=== PATIENT | female | born 2005 | race Caucasian/White ===

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

== ENCOUNTER 2024-10-25 13:56 | Outpatient (AMB) | payer OTHER, SELFPAY ==
--- NOTE | 2024-10-25 14:14 | MHC.PC.OV ---
Vital Signs 10/25/24 14:20 Height 5 ft 2.25 in Weight 131 lb BMI 23.8 BP 102/64 Blood Pressure Location Rt brachial Pulse 89 Pulse Source Pulse Oximeter Temp 97.9 F Pulse Oximetry (%) 98 Intake Visit Reasons: establish care Intake Note: trouble sleeping but seems to be getting worse Allergies amoxicillin Allergy (Unknown, Verified 10/25/24 14:18) unknown walnuts Allergy (Unknown, Uncoded 08/07/21 09:30) unknown [facility] Medical History (Updated 10/25/24 @ 15:12 by Anabel Maki PA-C) Thyroid nodule Establishing care with new doctor, encounter for Constipation in female Anxiety Asthma Surgical History (Updated 10/25/24 @ 15:10 by Anabel Maki PA-C) H/O right wrist surgery [place] teeth removed Family History (Updated 10/25/24 @ 15:09 by Anabel Maki PA-C) Mother Diabetes Maternal Grandmother Diabetes Social History Patient Tobacco Use Status: Never used Tobacco Female Reproductive History Menstrual control method: none History of abnormal pap smear: No History of STI: No History of abnormal mammogram: No Questionnaire PHQ-9 Over the last 2 weeks, how often have you been bothered by any of the following problems? 1. Little interest or pleasure in doing things: not at all 2. Feeling down, depressed, or hopeless: several days 3. Trouble falling or staying asleep, or sleeping too much: more than half the days 4. Feeling tired or having little energy: several days 5. Poor appetite or overeating: not at all 6. Feeling bad about yourself - or that you are a failure or have let yourself or your family down: several days 7. Trouble concentrating on things, such as reading the newspaper or watching television: several days 8. Moving or speaking so slowly that other people could have noticed. Or the opposite - being so fidgety or restless that you have been moving around a lot more than usual: several days 9. Thoughts that you would be better off or of hurting yourself in some way: not at all Total score: 7 Depression Screening Interpretation: Negative Depression Screening Done: Yes 58067 - PHQ-9 Billing: Yes Source: Developed by Drs. Silverio Melissa, Gurpreet Soria and colleagues, with an educational delmy from [employer]. Thrive Questionnaire I am a: Patient What is your living situation today?: I have a steady place to live Within the past 12 months, did the food you bought not last and you didn't have the money to get more?: Never true Within the past 12 months, did you worry whether your food would run out before you got money to buy more?: Never true Do you have trouble paying for medicines?: No Do you have trouble getting transportation to medical appointments?: No Do you have trouble paying your heating and electricity bill?: No Do you have trouble taking care of your child, family member or friend?: No Do you have trouble with day-to-day activities such as bathing, preparing meals, shopping, managing finances, etc.?: No Are you currently unemployed and looking for a job?: No Are you interested in more education?: No THRIVE Score: 0 AUDIT C Alcohol Use Questionnaire (AUDIT-C) 1. How often do you have a drink containing alcohol?: Never 3. How often do you have six or more drinks on one occasion?: Never Total Score: 0 Score Reviewed/Action Taken: No JEANNIE-7 AMB Questionnaire JEANNIE-7 Feeling nervous, anxious, or on edge: 2 = More than half the days Not being able to stop or control worryin = More than half the days Worrying too much about different things: 2 = More than half the days Trouble relaxin = More than half the days Being so restless that it is hard to sit still: 2 = More than half the days Becoming easily annoyed or irritable: 2 = More than half the days Feeling afraid as if something awful might happen: 2 = More than half the days Total JEANNIE-7 score (0-4 normal; 5-9 mild; 10-14 moderate; 15-21 severe): 14 Source: Developed by Drs. Silverio Melissa, Gurpreet Soria and colleagues, with an educational delmy from [employer]. JEANNIE-7 Assessment Billing JEANNIE-7 Assessment Tool: JEANNIE-7 Assessment 01622 Physical exam (Primary Care) Vital Signs: Last Vital Signs Temp 97.9 F 03/26/25 14:20 Pulse 89 10/25/24 14:20 BP 102/64 10/25/24 14:20 Pulse Ox 98 10/25/24 14:20 Care Plan Goal for BP management: <130/80 at Goal BMI result Body Mass Index 23.8 normal bmi Tobacco/Smoking Status: Tobacco use Status Patient Tobacco Use Status Never used Tobacco 10/25/24 14:15 Depression Screening Interpretation: Negative Coding Level of Care Code New Pt Level 4 (26929) Complex EM visit Add On G2211 Diagnoses Establishing care with new doctor, encounter for Z76.89 Anxiety F41.9 Asthma J45.909 Constipation in female K59.00 Thyroid nodule E04.1 Additional Codes PHQ-9 - 72430 - PHQ-9 Billing: Yes ([id number]) JEANNIE-7 Assessment Billing - JEANNIE-7 Assessment Tool: JEANNIE-7 Assessment [id number] ([id number]) Assessment & Plan Assessment & Plan (1) Establishing care with new doctor, encounter for: Code(s): Z76.89 - Persons encountering health services in other specified circumstances Category: Medical (2) Anxiety: Code(s): F41.9 - Anxiety disorder, unspecified Category: Medical Plan: Therapy referral was made to explore treatment for increased anxiety. Hydroxyzine prescribed to assist with anxiety and sleep issues temporarily. Condition is chronic and stable continue to monitor. (3) Asthma: Code(s): J45.909 - Unspecified asthma, uncomplicated Category: Medical Plan: The patient is aware of her asthma diagnosis with infrequent symptoms. Albuterol inhaler prescribed for sporadic use as needed for asthma symptoms. Condition is chronic and stable continue to monitor. (4) Constipation in female: Code(s): K59.00 - Constipation, unspecified Category: Medical Plan: Will prescribe fiber supplement, Colace and MiraLax. Condition is chronic and stable continue to monitor. (5) Thyroid nodule: Code(s): E04.1 - Nontoxic single thyroid nodule Category: Medical Plan: On exam patient is noted to have a possible thyroid nodule therefore will order thyroid ultrasound. Condition is stable continue to monitor Plan Plan Patient was informed and verbally consented to the use of an ambient scribe for clinic note documentation during this visit. 1. Unspecified asthma, uncomplicated The patient is aware of her asthma diagnosis with infrequent symptoms. Albuterol inhaler prescribed for sporadic use as needed for asthma symptoms. 2. Family History Of Diabetes Mellitus Discussed the importance of lifestyle alterations to prevent diabetes given her familial predisposition. 3. History Of Surgical Extraction Of [place] Teeth Recorded past surgical procedure of wisdom teeth removal with no current complications. 4. Personal history of (healed) traumatic fracture Reviewed historical treatment details of wrist fractures with patient confirming absence of current issues. 5. Generalized Anxiety Disorder Therapy referral was made to explore treatment for increased anxiety. Hydroxyzine prescribed to assist with anxiety and sleep issues temporarily. Discussion Notes During the visit, we discussed the patient's current health concerns focusing on her asthma and anxiety. I outlined the importance of having an albuterol inhaler available as a precautionary measure despite the infrequency of asthma symptoms. The patient expressed interest in managing heightened stress and anxiety through therapeutic interventions. Hydroxyzine was suggested to alleviate sleep disturbances and reduce stress related issues. She was referred to a mental health professional to explore further assessment and therapy. Additionally, we discussed her significant family history of diabetes and strategies for risk reduction through lifestyle choices. I explained the need to monitor thyroid nodules with an ordered ultrasound. Appropriate consent for actions and care plan modifications were discussed and obtained. Orders: Orders Complete Blood Count Auto Diff Today Z00.00 - Encounter for general adult medical examination without abnormal findings C Reactive Protein Today Z00.00 - Encounter for general adult medical examination without abnormal findings Magnesium Today Z00.00 - Encounter for general adult medical examination without abnormal findings Vitamin D 25-OH Total Today Z00.00 - Encounter for general adult medical examination without abnormal findings Comprehensive [place]. Panel Fast Today Z00.00 - Encounter for general adult medical examination without abnormal findings Hemoglobin A1c Today Z00.00 - Encounter for general adult medical examination without abnormal findings Lipid Panel Today Z00.00 - Encounter for general adult medical examination without abnormal findings Liver Panel Today Z00.00 - Encounter for general adult medical examination without abnormal findings TSH reflex Free T4 Today Z00.00 - Encounter for general adult medical examination without abnormal findings US thyroid Today E04.1 - Nontoxic single thyroid nodule Referrals Counseling Referral F41.9 - Anxiety disorder, unspecified Psychiatry Outpatient Consultation Service F41.9 - Anxiety disorder, unspecified Medications: New hydroxyzine HCl 50 mg PO Q8H PRN 90 tabs 1RF anxiety psyllium husk (Daily Fiber) 0.52 grams PO DAILY 90 caps 1RF docusate sodium (Colace) 100 mg PO DAILY 90 caps 1RF polyethylene glycol 3350 (Miralax) 17 grams PO BID 30 ea 1RF Patient Instructions: Patient Instructions - Use albuterol inhaler as needed for asthma symptoms. - Take hydroxyzine before bed to assist with sleep and anxiety as discussed. - Attend scheduled appointment with referred therapist for anxiety management. - Increase physical activity and consider dietary changes to reduce diabetes risk. - Return for follow-up visit within a year or sooner if symptoms worsen or new issues arise. - Plan for ultrasound evaluation of thyroid nodule as scheduled. - Consult us if there are any changes in your health or if you experience new symptoms. - Maintain open communication regarding health concerns and management plans. - Follow up if prescribed treatments do not alleviate symptoms or cause side effects. Scribe Plan - Not visible on output: History of Present Illness The patient is a 18-year-old female presenting for the establishment of primary care, asthma management, and anxiety issues. She has a history of asthma diagnosed during childhood, with rare recent symptoms and uncertainty about needing inhaler therapy. She also struggles with heightened anxiety levels, impacting her daily life and sleep patterns, prompting interest in therapeutic support. She has a notable history of multiple right wrist fractures in her early adolescence, leading to surgical intervention involving plates and screws. Her family has a significant history of diabetes, particularly affecting her mother and maternal grandparents. She denies any family history of cardiovascular or breast cancer. Her history also includes the surgical removal of wisdom teeth. The patient has pursued health science studies in college and plans to transition to [employer] school. She resides with her family, reports social drinking habits, and is sexually active with one male partner. Her increased anxiety has led to sleep disruptions, affecting her interpersonal relationships. She is considering therapy, despite familial resistance to such interventions. Social History - Education: Currently a [employer] in college majoring in health science. - Housing: Lives with parents and two younger sisters. - Relationships: In a stable relationship with a boyfriend. - Substance Use: Consumes alcohol rarely in social settings; denies drug use. - Sexual Activity: Sexually active with her boyfriend. - Family Health: Family history of diabetes; mother and both maternal and paternal grandparents affected. - Activities of Daily Living: Manages college life and aspirations for a career in [employer], occasionally affected by anxiety. Review of Systems - General: Denies unintentional weight gain or loss. - Gastrointestinal: Denies trouble moving bowels. - Psychiatric: Reports anxiety with recent episodes affecting sleep and interpersonal relationships. Physical Exam Appearance: Alert. Oriented X3. No acute distress. Head: Normal external exam. Normocephalic. Atraumatic. Eyes: Pupils are equal, round, and reactive to light. Extraocular movements intact. Conjunctiva and sclera normal. Eyelids normal. Ears: External auditory canal normal. Tympanic membranes normal. Throat: Pharynx normal. Uvula midline. Moist mucous membranes. Neck: Normal inspection. Neck supple. Full range of motion. No adenopathy. Questioning thyroid nodule on the left side. Otherwise the rest of the thyroid is normal. No meningeal signs. No neck mass noted. Cardiovascular: Normal heart rate and rhythm. Heart sound normal. No murmurs noted. Pulses normal throughout. Respiratory: No respiratory distress. Painless inspiration. Breath sounds normal. No wheezes/rales/rhonchi noted. Chest nontender. No accessory muscle usage noted or decreased air movement noted. Abdomen: Soft and nontender. Bowel sounds normal in all 4 quadrants. No distention noted. No organomegaly noted. No visible injury noted. Back: No costovertebral angle tenderness. Full range of motion noted. Skin: Skin warm and dry. Normal skin color. Normal skin turgor. No rashes/lesions/lacerations noted. Extremities: No lower extremity edema. Extremities exhibit normal range of motion. Extremities nontender. Neuro: Oriented X 3. No motor deficit. No sensory deficit. Reflexes normal.
[2024-10-25 14:20] VITALS: BP 102/64; PULSE 89; TEMP 36.6; O2SAT 98; BMI 23.8
--- OUTSIDE RECORDS SUMMARY | 2024-10-25 16:45 | XMS_ITS ---
Author Name [facility] Organization Unknown Allergies Allergen Reaction Severity Comment Documented Date Source Statu s [facility] AMOXICILLIN [facility] Problems Problem Status Onset Date Problem Type Date of Resoluti on Source Numbness of hand active 2024-01-28 ProblemAct E [facility] Pain of left wrist active 2024-01-28 ProblemAct [facility] Numbness and tingling in right hand active EncounterDiagnosisAct [facility]CT Encounters Encounter Type Encounter Reason Primary Diagnosis Location Date Ambulatory [facility] 03/20/2024 Ambulatory [facility] 03/17/2024 Ambulatory Anesthesia of skin Anesthesia of skin [facility] [employer] [facility] 02/28/2024 Ambulatory [facility] 01/31/2024 Ambulatory [facility] 01/28/2024 Ambulatory [facility] 01/07/2024 Ambulatory [facility] 01/06/2024 Ambulatory [facility] 01/06/2024 Ambulatory [facility] 01/06/2024 Ambulatory [facility] 01/06/2024 Ambulatory [facility] 01/06/2024 Care Team Organization Name Specialty Phone Email Start Date End [employer] [facility] [employer] 02/29/2024 10/18/2024 [employer] 01/31/2024
--- OUTSIDE RECORDS SUMMARY | 2024-10-25 16:45 | XMS_ITS | Data Portability ---
Author Organization [place] [facility] Diane España [place] Address [address] [place] [address] Care Team Providers Care Shore Man Name Role Phone ELICIA PUGH Referring Provider [phone] ELICIA PUGH Primary Care Provider Assessment Encounter Date Assessment Date Assessment LastModified by Organization Details LastModified Time 01/06/2024 01/06/2024 She has chronic pain following 3 right wrist procedures. I believe she needs hand therapy at this time. She may ultimately require advanced imaging with either an MRI or nerve conduction study however these are not warranted at this time. Plan to follow-up with Dr. Santos in about 3 weeks for repeat assessment. Not available 01/06/2024 14:15:10 01/28/2024 01/28/2024 The above findin gs were discussed in detail today with the patient. She has relatively nonspecific findings though on my examination today she is exhibiting mostly sensitivity over her volar incision. It does appear that the tendon transfer which is supposedly a EIP to EPL tendon transfer has worked well and is functional. I did explain to her that typically she will not regain retropulsion of the thumb however she has good extension of the thumb and it is functional. She is not having any deficits in her index finger from the tendon transfer. She has good wrist range of motion. Cannot explain the numbness and tingling symptoms she is having up into her forearm and into her fingers though it does seem that her scar is mostly sensitive to light touch. I explained that therapy can be helpful for this although she has been to extensive physical therapy. Lateral importance of doing scar massage at home and desensitization to help with the symptoms. I would like to obtain the records from Dr. Brendon's office for details for each of the surgeries and treatments that he has done so far before proceeding with an MRI. We will get a nerve conduction study to evaluate for her nonspecific nerve symptoms. She will return to see me for follow-up in 3 weeks after she obtains a nerve conduction study and we obtain the records from the other office. All of her questions were answered, she is in agreement the plan. [email or web address] Not available 01/28/2024 12:09:38 03/17/2024 03/17/2024 The above findin gs were discussed in detail today with the patient. She has relatively nondescript symptoms and I cannot reproduce any of her symptoms today on examination. We went over the results of her nerve conduction study which do not show any abnormalities in tested nerves. I let her know that I cannot offer her surgery or intervention that may help her at this point. I would recommend continued therapy and use of the hand as tolerated we discussed that she had 3 surgeries on that hand and it may never be the same as her contralateral side. She understands this. We did discuss seeing a PM&R physician if she would like another opinion about the cramping and numbness that she is experiencing. She will hold off at this point. All of her questions were answered she will return to see me as needed. [email or web address] Not available 03/17/2024 12:29:54 Plan of Treatment Reminders Order Date Submit Date Provider Last Modified By Organization Details Last Modified Time Details Appointments None recorded. Lab None recorded. Referral physical medicine and rehabilita tion referral - Right hand numbness, history of distal radius fracture s/p ORIF and removal of hardware, sensistivi ty over volar wrist incision, numbness in forearm and [email or web address] Request, please contact patient directly to schedule. 2023 024 LUANA Leija MD, [address] [facility], [place], [address], 16:17:48 Procedures None recorded. Surgeries None recorded. Imaging XR, wrist, 3 or more view 2023 024 [email or web address] [facility], [address], [place] [address], [place], [address], 10:22:45 Medication Orders None recorded. Patient TargetsNo targets recorded. Patient Instructions Encounter Date Encounter Id Patient Instructions Last Modified By Organization Details Last Modified Time 01/06/2024 [id number] X-rays of the ri ght wrist were obtained in the [place] office on 01/06/2020 force demonstrates no acute osseous abnormalities. [email or web address] Not available 01/06/2024 14:15:24 01/28/2024 [id number] 3 views of the r ight wrist were ordered on 01/06/2024 and available for review in our system, this demonstrates no acute findings. There is about 2 mm of ulnar negative variance. 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 No evidence of mall or nonunion at the distal radius. There is neutral volar tilt. There is maintained radial inclination. Good mineralization of the bones. [email or web address] Not available 01/28/2024 12:06:43 03/17/2024 [id number] A nerve conducti on study was performed on 02/28/2024 was available for review uploaded into our system, this demonstrates sensory median peak of 2.8 ulnar sensory peak of 2.9 lateral antebrachial cutaneous peak of 2.3. Right median motor onset of 3.0 right ulnar motor onset of 2.5. The impression is there is no electrodiagnostic evidence of right carpal tunnel syndrome or ulnar neuropathy. [email or web address] Not available 03/17/2024 12:28:35 Reason for Referral Physical Medicine And Rehabi litation Referral for Numbness of hand Right hand numbness, history of distal radius fracture s/p ORIF and removal of hardware, sensistivity over volar wrist incision, numbness in forearm and [email or web address] Request, please contact patient directly to schedule. Referring Physician: Flor Santos, Orthopedic Surgery, Encounter Date: 01/28/2024 Problems Name Problem SNOMED Code Status Onset Date Resolution Date Notes Provider Name and Address Organization Details Recorded Time Pain of left wrist 565613500180104 Active 2023 Flor alas MD [address], [facility] [place], [address], [place] [facility], P 12:09:56 Numbness of hand 119107588 Active 2023 Flor alas MD [address], [place], [address], [facility], P 4 12:10:11 Problem Notes None recorded. Medical Equipment None Reported. Allergies Allergen ID Allergen Name Allergen Category Reaction Reaction Severity Criticality Documentation Date Start Date Code Code System Note Provider Name and Address Organization Details Recorded Time 38103 walnut allergeni c extract food Not available Not available Not available 01/28/2024 71042 0 RxNorm Geetha Narus null, [facility], [facility] 4 14:23:09 39996 amoxicill in medicatio n Not available Not available Not available 01/28/2024 723 RxNorm Geetha Narus null, [facility], P 4 14:23:14 Medications Name Sig Start Date Stop Date Status Note LastModified by Organization Details LastModified Time cetirizine 10 mg tablet Take 1 tablet (10 mg total) by mouth daily as needed for allergies. active Not Available Not Available N ot Available azithromycin 250 mg tablet active Not Available Not Available Not Available clindamycin HCl 150 mg capsule TAKE 3 CAPSULES BY MOUTH THREE TIMES DAILY FOR 10 DAYS active Not Available Not Available Not Available fluticasone propionate 50 mcg/actuatio n nasal spray,suspen laura Administer 2 sprays into each nostril daily. active Not Available Not Available No t Available doxycycline hyclate 100 mg tablet TAKE 1 TABLET BY MOUTH TWICE DAILY active Not Available Not Available No t Available Vitals Date Recorded Body height Body mass index (BMI) Body mass index (BMI) Percentile per age and sex Body weight Provider Name and Address Organization Details Last Updated DateTime 03/17/2024 160.02 cm 23.9 kg/m2 71 % 04981.97 g Juve Ramos [facility] 03/17/2024 10:05:15 Social History None recorded. Functional Status None recorded. Mental Status None recorded. Family History Nothing Reported. Medical History No medical history recorded. Gynecological HistoryNo gynecological history recorded. Obstetrics History GPAL:G 0 P 0 0 0 0 Past Encounters Encounter ID Performer Location Encounter Start Date Encounter Closed Date Diagnosis/Indication Diagnosis SNOMED-CT Code Diagnosis ICD10 Code Diagnosis Note [id number] Flor Santos MD [facility] [address] [facility] [place] [address] 01/06/2024 13:33:07 01/06/2024 14:13:53 Pain of right wrist 5979390196 19850 M25.531 Additional diagnosis detail: Pain in right wrist [id number] Geetha Pollock [facility] [address] [facility] [address] [place] [phone] 01/28/2024 11:11:06 01/28/2024 11:47:30 Pain of left wrist 9911463250 03504 M25.532 Additional diagnosis detail: Wrist pain, left Numbness of hand 9555478 04 R20.0 Additional diagnosis detail: Hand numbness [id number] Flor Santos MD [facility] [address] [address] 03/17/2024 09:58:30 03/17/2024 10:23:46 Numbness of hand 906118303 R20.0 Additional diagnosis detail: Hand numbness Health Concerns Section Related Observation LastModified by Organization Detai ls LastModified Time None Recorded Concern Status LastModified by Organization Details LastModified Time None Recorded Advance Directives Directive None Recorded Payers Encounter Date Sequence Insurance Name Policy Number Policy Mcneill Covered Member ID Mcneill Member ID Guarantor Name 01/06/2024 1 [facility] [id number] Colleen Turk [id number] Colleen Turk 01/28/2024 1 [facility] [id number] Colleen Turk [id number] Colleen Turk 03/17/[address] [place] [address] [id number] Colleen Turk [id number] Colleen Turk Notes Date Note Type Note Provider Name and Address Organization Details Recorded Time 01/06/2024 text/html Colleen Turk i s a 18-year-old female who presents to the walk-in office today for evaluation regarding her right breast. She reports 2 surgeries in 2010 for wrist fracture with subsequent hardware removal in 2011 and then a third surgery in [address] Olivas. She notes that since her last procedure she has had intermittent pain that she feels is brought on at unknown times. This can be as simple as brushing her hair or opening her water bottle and she has severe pain. She does complain of intermittent numbness and tingling as well. She did attend hand therapy but this was more than 5 years ago. She has not had any recent treatment to date. 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 TJ CIFUENTES PA-C [address], [place], [address], [place] [facility] 01/06/2024 14:15:39 01/28/2024 text/html This is a 18-year-old nvegj-vaxq-dirxyynh female who is presenting for second opinion regarding her right wrist. She has a history significant for a right wrist fracture she sustained while skiing which was fixed with plate and screws when she was 9 [address] Olivas at [facility]. She underwent subsequent removal of hardware 1 year later. She then underwent a third surgery when she was 14 years old for what sounds like a EPL tendon rupture and underwent a EIP to EPL tendon transfer. She has had issues since the first surgery. She notes pain over her volar incision as well as tingling that radiates into her forearm and distally into the fingers. She has a lot of sensitivity over the incision at the volar wrist as well as over the index finger metacarpal. She has difficulty with typing, opening a water bottle, gripping. She describes severe pain which comes and goes as well as numbness and tingling. She has difficulty with articulating exactly where her symptoms occur. 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 She does not use tobacco or nicotine products, illicit drug use, or alcohol use. Geetha davis, [place] [facility] 01/28/2024 14:01:44 03/17/2024 text/html She returns for follow-up of right hand numbness and dysfunction. I sent her for a nerve conduction study to evaluate for nerve pathology. She comes in today for review. She notes no difference in her symptoms, describes pain and cramping as well as numbness and tingling which starts at the index and middle finger MP joints the dorsal hand and radiates into her proximal forearm. She also notes a uncomfortable feeling when she uses her thumb and wrist. She did go to physical therapy recently, they worked on range of motion massage and strengthening as well as ultrasound, she does not feel it made much of a difference for her symptoms.On review of the medical records which were obtained, it appears that she had a distal radius fracture which was treated with a plate when her growth plates are still open which was subsequently removed after healing of the fracture. She was in a cast for most of the time after the initial plate was placed and after the plate was removed. At some point during that timeframe, her therapist noticed that she was not moving her thumb appropriately and she went in for reevaluation when there was concern for an EPL rupture, she was taken back to the OR for EIP to EPL tendon transfer. Timeframe is a bit unclear when this may have happened. She did not notice a distinct change in her symptoms or functionality. Flor Santos MD [address], [place], [address], [place] [facility] 03/17/2024 12:30:06 OBGyn Episode No OBEpisode recorded.
--- OUTSIDE RECORDS SUMMARY | 2024-10-25 16:46 | XMS_ITS | Data Portability ---
Author Organization [place] [facility], Allergy Address [address] [address] Care Team Providers Care Test Lead Name Role Phone ELICIA PUGH Primary Care Provider [phone] Assessment Encounter Date Assessment Date Assessment LastModified by Organization Details LastModified Time 02/23/2024 02/23/2024 18-year-old female presents for evaluation of chronic rhinitis and nasal congestion. Exam today demonstrates turbinate hypertrophy, mild septal deviation to the left, and mucoid rhinorrhea. Recommended CT sinus and allergy testing for further evaluation. Patient is interested in food allergy testing as well as environmental allergy testing and referral to [facility] was placed today. Recommended trial of Azelastine in addition to Flonase and Zyrtec. She will follow-up to review CT results. Patient with concerns about tonsillar hypertrophy. Tonsils are 3+ bilaterally and cryptic. She does not meet criteria for tonsillectomy at this time. We will continue to observe. [email or web address] Not available 02/23/2024 12:35:04 Plan of Treatment Reminders Order Date Submit Date Provider Last Modified By Organization Details Last Modified Time Details Appointments None recorded. Lab None recorded. Referral lockstitch collar setter referral 2023 024 [facility], [address], [address], [place], [address], 10:22:37 Procedures None recorded. Surgeries None recorded. Imaging CT, sinuses, w/o contrast 2023 024 [facility] [address], [place], [address], 4 12:31:49 Medication Orders azelastine 137 mcg (0.1 %) nasal spray 2023 024 [facility] [place] [place], [address] [facility], [place], [address], 4 10:20:57 Patient TargetsNo targets recorded. Patient InstructionsNo instructions recorded. 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 Referring Physician: Morales Mendez, Otolaryngology, Encounter Date: 02/23/2024 Problems Name Problem SNOMED Code Status Onset Date Resolution Date Notes Provider Name and Address Organization Details Recorded Time Chronic sinusitis 19572260 Active 024 MORALES MENDEZ PA-C [address] [place] [address],[place] [address], [place], [address] , [facility] 4 12:29:45 Allergic rhinitis 10680125 Active 024 MORALES MENDEZ PA-C [address] [place] [address],[place] [address], [place], [address] , [facility] 4 12:29:49 Problem Notes None recorded. Medical Equipment None Reported. Allergies Allergen ID Allergen Name Allergen Category Reaction Reaction Severity Criticality Documentation Date Start Date Code Code System Note Provider Name and Address Organization Details Recorded Time 795756 amoxicill in medicatio n Not available Not available Not available 02/23/2024 723 RxNorm Nelda davis [place] [facility] 4 11:14:39 Medications Name Sig Start Date Stop Date Status Note LastModified by Organization Details LastModified Time cetirizine 10 mg tablet Take 1 tablet (10 mg total) by mouth daily as needed for allergies . active Not Available Not Available No t Available azithromyci n 250 mg tablet 02/22 completed Not Available Not Available Not Available clindamycin HCl 150 mg capsule TAKE 3 CAPSULES BY MOUTH THREE TIMES DAILY FOR 10 DAYS 02/22 completed Not Available Not Available Not Available azelastine 137 mcg (0.1 %) nasal spray instill 2 SPRAYS IN EACH nostril TWICE DAILY active Not Available Not Available No t Available fluticasone propionate 50 mcg/actuati on nasal spray,suspe nsion Administe r 2 sprays into each nostril daily. active Not Available Not Available No t Available doxycycline hyclate 100 mg tablet TAKE 1 TABLET BY MOUTH TWICE DAILY 02/22 completed Not Available Not Available Not Available Vitals Date Recorded Body height Body mass index (BMI) Body mass index (BMI) Percentile per age and sex Body weight Provider Name and Address Organization Details Last Updated DateTime 02/23/2024 160.02 cm 24.4 kg/m2 74 % 25636.75 g Nelda Velasquez [place] [facility] 02/23/2024 11:13:52 Social History None recorded. Functional Status None recorded. Mental Status None recorded. Family History Nothing Reported. Medical History No medical history recorded. Gynecological HistoryNo gynecological history recorded. Obstetrics History GPAL:G 0 P 0 0 0 0 Past Encounters Encounter ID Performer Location Encounter Start Date Encounter Closed Date Diagnosis/Indication Diagnosis SNOMED-CT Code Diagnosis ICD10 Code Diagnosis Note [id number] MORALES MENDEZ PA-C [facility] [address] [address] 02/23/2024 10:37:29 02/23/2024 11:48:36 Chronic sinusitis 38172752 J32.8 Allergic rhinitis 169579 04 J30.89 Health Concerns Section Related Observation LastModified by Organization Detai ls LastModified Time None Recorded Concern Status LastModified by Organization Details LastModified Time None Recorded Advance Directives Directive None Recorded Payers Encounter Date Sequence Insurance Name Policy Number Policy Mcneill Covered Member ID Mcneill Member ID Guarantor Name 02/23/[address] [place] [address] ([facility] [id number] Colleen Turk [id number] Colleen Turk Notes Date Note Type Note Provider Name and Address Organization Details Recorded Time 02/23/2024 text/html 18-year-old female presents for evaluation of chronic nasal congestion and rhinitis. She reports for the past 2 years, she has had chronic nasal congestion, postnasal drip, and rhinitis. She started taking Zyrtec daily with some improvement. Has tried Flonase with some improvement but is inconsistent with daily use. She reports 3-4 sinus infections per year. Xray sinus 3/6/23 demonstrated mucosal thickening in the maxillary sinuses without air fluid levels. She was treated with 21 days of antibiotics with improvement in symptoms. No recent imaging of the sinuses. Patient also with concerns about enlarged tonsils. She denies history of recurrent tonsillitis or concerns about sleep apnea. She does note that when she is sick, her tonsils swell. MORALES MENDEZ PA-C [address] [facility],[place] [address], [place], [address], [place] [facility] 02/23/2024 12:36:11 OBGyn Episode No OBEpisode recorded.
--- OUTSIDE RECORDS SUMMARY | 2024-10-25 16:46 | XMS_ITS | Clinical Summary ---
Author Organization [facility] Address [address] [place] [address] Care Team Providers Care Induction Machine Operator Name Role Phone Unavailable Primary Care Provider Unavailabl e Social History Tobacco Use Types Packs/Day Years Used Date Smoking Tobacco: Never Assessed Sex and Gender Information Value Date Recorded Sex Assigned at Female 02/10/2024 3:56 PM EDT Gender Identity Female 02/10/2024 3:56 PM EDT Sexual Orientation Choose not to disclose 2023 3:56 PM EDT Plan of Treatment Health Maintenance Due Date Last Done Comments Hepatitis C Virus Screening 2003 HIV Screening 12/16/2016 HPV Vaccines (1 - 3-dose series) 12/16/2018 DTaP/Tdap/Td Vaccines (1 - Tdap) 12/16/2022 Hepatitis B Vaccines (1 of 3 - 19+ 3-dose series) 12/16/2022 Influenza Vaccine 03/02/2024 COVID-19 Vaccine (1 - 2023-2 5 season) 2024 Pneumococcal Vaccine: Pediat donta (0-5 Years) and At-Risk Patients (6 to 49 Years) Aged Out No longer eligible b ased on patient's age to complete this topic
== END 2024-10-25 14:50 | disposition home or self-care (01) ==
LOC: HO.HMCSH 13:56
PROVIDERS: PCP Internal Medicine; Visit Provider Physician Assistant Medical
DX: Z76.89 Persons encountering health services in other specified circumstances (principal); F41.9 Anxiety disorder, unspecified; J45.909 Unspecified asthma, uncomplicated; K59.00 Constipation, unspecified; E04.1 Nontoxic single thyroid nodule

== ENCOUNTER → 2024-10-25 13:56 | Outpatient (BNVA) | payer OTHER, SELFPAY | PROVIDERS: PCP Internal Medicine; Visit Provider Physician Assistant Medical | DX: Z76.89 Persons encountering health services in other specified circumstances (principal); F41.9 Anxiety disorder, unspecified; J45.909 Unspecified asthma, uncomplicated; K59.00 Constipation, unspecified; E04.1 Nontoxic single thyroid nodule | CPT/HCPCS: 96127 ==

== ENCOUNTER 2024-12-14 11:22 | Outpatient (REF) | payer OTHER, SELFPAY ==
--- NOTE | ~2024-12-14 | US_ITS ---
EXAMINATION: US THYROID HISTORY: E04.1 - Nontoxic single thyroid nodule TECHNIQUE: Real-time grayscale ultrasound imaging was performed and images were reviewed. COMPARISON: There are no prior studies for comparison. FINDINGS: SIZE: The right thyroid lobe measures 4.7 x 1.2 x 1.4 cm. The left thyroid lobe measures 4.3 x 1.0 x 1.4 cm. The isthmus measures 3 mm. FLOW: Flow to the gland is normal. ECHOGENICITY: The echotexture of the gland is homogeneous. NODULES: A single 5 x 3 x 3 mm cystic/spongiform nodule is noted at the lower pole of the right thyroid lobe. No suspicious nodules are identified. US/US thyroid IMPRESSION: Essentially unremarkable thyroid ultrasound. ACR TI-RADS Guidelines TR1 (0 points): Benign, No follow-up or biopsy required TR2 (2 points): Not Suspicious, No biopsy or follow up indicated TR3 (3 points): Mildly Suspicious, FNA if >= 2.5 cm, Follow if >= 1.5 cm TR4 (4-6 points): Moderately Suspicious, FNA if >= 1.5 cm, Follow if >= 1.0 cm TR5 (>=7 points): Highly Suspicious, FNA if >= 1.0 cm, Follow if >= 0.5 cm Electronically signed by: Silverio Coto MD 12/14/2024 11:50 AM EDT
--- OUTSIDE RECORDS SUMMARY | 2024-12-14 12:32 | XMS_ITS | Data Portability ---
Author Organization [place] - [facility], Allergy Address [address] [address] Care Team Providers Care Naval Gunfire Spotter Name Role Phone ELICIA PUGH Primary Care Provider Assessment Encounter [...] this time. We will continue to observe. [email or web address] Not available 02/23/2024 12:35:04 Plan of Treatment Reminders Order Date Submit Date Provider Last Modified By Organization Details Last Modified Time Details Appointments None recorded. Lab None recorded. 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 Surgeries None recorded. Imaging CT, sinuses, w/o contrast 2023 024 [facility] [address], [place], [address], 4 12:31:49 Medication Orders azelastine 137 mcg (0.1 %) nasal spray 2023 024 [facility] [place], [place], [address] [facility], [place], [address], 4 10:20:57 Patient TargetsNo targets recorded. Patient InstructionsNo instructions recorded. 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 Referring Physician: Morales Mendez, Otolaryngology, Encounter Date: 02/23/2024 Problems Name Problem SNOMED Code Status Onset Date Resolution Date Notes Provider Name and Address Organization Details Recorded Time Chronic sinusitis 27964808 Active 024 MORALES MENDEZ PA-C [address] [place] [address],[place] [address], [facility] [place], [address] , [facility] 4 12:29:45 Allergic rhinitis 58350546 Active 024 MORALES MENDEZ PA-C [address] [place] [address],[place] [address], [facility] [place], [address] , [facility] 4 12:29:49 Problem Notes None recorded. Medical Equipment None Reported. Allergies Allergen ID Allergen Name Allergen Category Reaction Reaction Severity Criticality Documentation Date Start Date Code Code System Note Provider Name and Address Organization Details Recorded Time 968816 amoxicill in medicatio n Not available Not available Not available 02/23/2024 723 RxNorm Nelda davis [place] [facility] 4 11:14:39 Medications Name Sig Start [...] 02/23/2024 160.02 cm 24.4 kg/m2 74 % 03523.75 g Nelda Velasquez [place] - [facility] 02/23/2024 11:13:52 Social History None recorded. [...] Note 9247 MORALES MENDEZ PA-C [facility] [address] [address] 02/23/2024 10:37:29 02/23/2024 11:48:36 Chronic sinusitis 61662958 J32.8 Allergic rhinitis 848866 04 J30.89 Health Concerns Section Related Observation LastModified by Organization Detai ls LastModified Time None Recorded Concern Status LastModified by Organization Details LastModified Time None Recorded Advance Directives Directive None Recorded Payers Insurance Date Sequence Insurance Name Policy Number Policy Mcneill Covered Member ID Mcneill Member ID Guarantor Name 02/23/[address] [place] [address] [place] [place] [id number] Colleen Turk [id number] Colleen Turk Notes Date Note Type Note [...] her tonsils swell. MORALES MENDEZ PA-C [address] [facility],[place] [address], [place], [address], [place] [facility] 02/23/2024 12:36:11 OBGyn Episode No OBEpisode recorded.
--- OUTSIDE RECORDS SUMMARY | 2024-12-14 12:32 | XMS_ITS | Clinical Summary ---
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 Phone Unavailable Primary Care Provider Unavailabl e Social History Tobacco Use Types Packs/Day Years Used Date Smoking Tobacco: Never Assessed Comments Unknown Sex and Gender Information Value Date Recorded Sex Assigned at Female 02/10/2024 3:56 PM EDT Legal Sex Female 1:59 PM EDT Gender Identity Female 02/10/2024 3:56 PM EDT Sexual Orientation Choose not to disclose 2023 3:56 PM EDT Plan of Treatment Health Maintenance Due Date Last Done Comments Hepatitis C Virus Screening 2003 HIV Screening 12/16/2016 HPV Vaccines (1 - 3-dose series) 12/16/2018 DTaP/Tdap/Td Vaccines (1 - Tdap) 12/16/2022 Hepatitis B Vaccines (1 of 3 - 19+ 3-dose series) 12/16/2022 COVID-19 Vaccine ( - 2023-2 5 season) 2024 Influenza Vaccine 03/02/2025 Pneumococcal Vaccine: Pediat donta (0-5 Years) and At-Risk Patients (6 to 49 Years) Aged Out No longer eligible b ased on patient's age to complete this topic Insurance [facility]
== END 2024-12-14 11:23 | disposition home or self-care (01) ==
LOC: HO.HMGCX 11:22
PROVIDERS: PCP Physician Assistant Medical; Visit Provider Physician Assistant Medical
DX: E04.1 Nontoxic single thyroid nodule (principal)
CPT/HCPCS: 76536

== ENCOUNTER → 2024-12-14 11:33 | Outpatient (BNV) | payer OTHER, SELFPAY | PROVIDERS: PCP Physician Assistant Medical; Visit Provider Radiology Diagnostic Radiology | DX: E04.1 Nontoxic single thyroid nodule (principal) | CPT/HCPCS: 76536 ==

== ENCOUNTER 2024-12-26 10:34 | Outpatient (AMB) | payer OTHER, SELFPAY ==
--- OUTSIDE RECORDS SUMMARY | 2024-12-26 11:19 | XMS_ITS | Data Portability ---
Author Organization [place] [facility] Address [address] [place] [address] Care Team Providers Care Inspector Precision Assembly Name Role Phone ELICIA PUGH Referring Provider ELICIA PUGH Primary Care Provider Assessment Encounter [...] in about 3 weeks for repeat assessment. [email or web address] Not available 01/06/2024 14:15:10 01/28/2024 01/28/2024 The [...] volar wrist incision, numbness in forearm and [email or web address] Request, please contact patient directly to schedule. 2023 024 LUANA Leija MD, [address] [facility], [place], [address], 16:17:48 Procedures None recorded. Surgeries None recorded. Imaging XR, wrist, 3 or more view 2023 024 [email or web address] [facility], [address], [place] [address], [place], [address], 10:22:45 Medication Orders None recorded. Patient TargetsNo targets recorded. Patient Instructions Encounter Date Encounter Id Patient Instructions Last Modified By Organization Details Last Modified Time 01/06/2024 [id number] X-rays of the ri ght wrist were obtained in the [place] office on 01/06/2020 force demonstrates no acute osseous abnormalities. [email or web address] Not available 01/06/2024 14:15:24 01/28/2024 [id number] 3 views of the r ight wrist [...] bones. [email or web address] Not available 01/28/2024 12:06:43 03/17/2024 [id number] A nerve conducti on study was performed [...] volar wrist incision, numbness in forearm and [email or web address] Request, please contact patient directly to schedule. Referring Physician: Flor Santos, Orthopedic Surgery, Encounter Date: 01/28/2024 Problems Name Problem SNOMED Code Status Onset Date Resolution Date Notes Provider Name and Address Organization Details Recorded Time Pain of left wrist 571987268995203 Active 2023 Flor alas MD [address], [facility], [address], [place] [facility] P 12:09:56 Numbness of hand 540728443 Active 2023 Flor alas MD [address], [place], [address], [facility] 4 12:10:11 Problem Notes None recorded. Medical Equipment None Reported. Allergies Allergen ID Allergen Name Allergen Category Reaction Reaction Severity Criticality Documentation Date Start Date Code Code System Note Provider Name and Address Organization Details Recorded Time 04483 walnut allergeni c extract food Not available Not available Not available 01/28/2024 88326 0 RxNorm Geetha Narus null, [facility] 4 14:23:09 51490 amoxicill in medicatio n Not available Not available Not available 01/28/2024 723 RxNorm Geetha Narus null, [facility], P 4 14:23:14 Medications Name Sig Start [...] 03/17/2024 160.02 cm 23.9 kg/m2 71 % 84086.97 g Juve Ramos [facility] 03/17/2024 10:05:15 Social History None recorded. Functional Status None recorded. Mental Status None recorded. Family History Nothing Reported. Medical History No medical history recorded. Gynecological HistoryNo gynecological history recorded. Obstetrics History GPAL:G 0 P 0 0 0 0 Past Encounters Encounter ID Performer Location Encounter Start Date Encounter Closed Date Diagnosis/Indication Diagnosis SNOMED-CT Code Diagnosis ICD10 Code Diagnosis Note [id number] TJ CIFUENTES PA-C [facility] [address] [facility] [place] [address] 01/06/2024 13:33:07 01/06/2024 14:13:53 Pain of right wrist 6819816020 19872 M25.531 Additional diagnosis detail: Pain in right wrist [id number] Flor Santos MD [facility] [address] [facility] [address] [place] [address] 01/28/2024 11:11:06 01/28/2024 11:47:30 Pain of left wrist 7740566187 89872 M25.532 Additional diagnosis detail: Wrist pain, left Numbness of hand 6610817 04 R20.0 Additional diagnosis detail: Hand numbness [id number] Flor Santos MD [facility] [address] [address] 03/17/2024 09:58:30 03/17/2024 10:23:46 Numbness of hand 732937580 R20.0 Additional diagnosis detail: Hand numbness Health Concerns Section Related Observation LastModified by Organization Detai ls LastModified Time None Recorded Concern Status LastModified by Organization Details LastModified Time None Recorded Advance Directives Directive None Recorded Payers Encounter Date Sequence Insurance Name Policy Number Policy Mcneill Covered Member ID Mcneill Member ID Guarantor Name 01/06/2024 1 [facility] [id number] Colleen Turk [id number] Colleen Turk 01/28/[address] [place] [address] [id number] Colleen Turk [id number] Colleen Turk 03/17/[address] [place] [address] [id number] Colleen Turk [id number] Colleen Turk Notes Date Note Type Note [...] TJ CIFUENTES PA-C [address], [place], [address], [place] [facility] 01/06/2024 14:15:39 01/28/2024 text/html This is a 18-year-old ehtzn-hqye-tbaglvaq female who is presenting for second opinion regarding her right wrist. She has a history significant for a right wrist fracture she sustained while skiing which was fixed with plate and screws when she was 9 [address] Olivas at [facility]. 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 She is working in a grocery store in the meantime.She has a history of asthma. She does not use tobacco or nicotine products, illicit drug use, or alcohol use. Geetha davis, [place] [facility] 01/28/2024 14:01:44 03/17/2024 text/html She returns [...] Flor Santos MD [address], [place], [address], [place] [facility] 03/17/2024 12:30:06 OBGyn Episode No OBEpisode recorded.
--- NOTE | 2024-12-26 11:54 | AM.OFFWIN_ITS ---
Intake Vital Signs 12/26/24 11:57 Weight 131 lb BP 108/70 Blood Pressure Location Rt brachial Position Sitting Pulse 77 Pulse Source Pulse Oximeter Temp 98.8 F Temp Source Oral Pulse Oximetry (%) 93 Oxygen Delivery Method Room Air Intake Visit Reasons: EP Sore throat/loss of voice Intake Note: Patient here for sore throat that has been present for a couple of days. Patient Tobacco Use Status: Never used Tobacco Allergies amoxicillin Allergy (Unknown, Verified 12/26/24 11:58) unknown walnuts Allergy (Unknown, Uncoded 12/26/24 11:58) unknown Do you need a note to return to daycare/school/sports/work: Yes HPI HPI Comments History of Present Illness Details 19 y/o Female patient who presents to [facility] walk in clinic with c/o Sore- throat and difficulty to swallow for couple of days now. Denies fevers, chills, nausea or vomiting. [facility] Medical History (Updated 12/26/24 @ 12:42 by Tosha Bolivar NP) Acute pharyngitis Thyroid nodule Establishing care with new doctor, encounter for Constipation in female Anxiety Asthma Surgical History (Updated 10/25/24 @ 15:10 by Anabel Maki PA-C) H/O right wrist surgery [place] teeth removed Family History (Updated 10/25/24 @ 15:09 by Anabel Maki PA-C) Mother Diabetes Maternal Grandmother Diabetes Social History Patient Tobacco Use Status: Never used Tobacco Review of Systems Const All systems reviewed & are unremarkable except as noted in HPI and below Physical Exam Vital Signs: Last Vital Signs Temp 98.8 F 12/26/24 11:57 Pulse 77 12/26/24 11:57 BP 108/70 12/26/24 11:57 Pulse Ox 93 12/26/24 11:57 Oxygen Delivery Method Room Air 12/26/24 11:57 Const General: no acute distress Orientation/consciousness: patient oriented x3 HEENT Head: Yes normocephalic Ears: external ears normal and TM abnormal with fluid behind the TM bilateral General nose exam: Normal external nose present Face and sinus: Yes sinuses nontender Mouth: tongue normal, moist mucous membranes and Abnormal oral and palatal mucosa present erythematous Throat: Yes uvula midline and Yes abnormal tonsil (Enlarged Tonsils +3) Resp Effort & Inspection: normal respiratory effort and able to speak in complete sentences Auscultation: clear to auscultation bilaterally, no crackles, no rales, no rhonchi and no wheezes Cardio Heart sounds: S1 normal heart sound present and S2 normal heart sound present Neuro General: patient oriented x3 Results AMB Rapid Strep AMB Rapid Strep Negative Last Edit by INES Ervin on 12/26/24 12:20 Results Reviewed Results Reviewed: Laboratory Last Values Strep Scn Rapid Clinic Negative 12/26/24 12:20 Assessment & Plan Assessment & Plan (1) Acute pharyngitis: Code(s): J02.9 - Acute pharyngitis, unspecified Qualifiers: Pharyngitis/tonsillitis etiology: unspecified etiology Qualified Code(s): J02.9 - Acute pharyngitis, unspecified Plan: Ordered Z-pack Rapid Strep Negative. Ordered Prednisone OTC Sore-throat remedies. Orders: Orders AMB Rapid Strep Screen Today Z13.9 - Encounter for screening, unspecified Medications: New azithromycin 500 mg PO DAILY 3 days 3 tabs 0RF J02.9 - Acute pharyngitis, unspecified prednisone 20 mg PO DAILY 5 days 5 tabs 0RF J02.9 - Acute pharyngitis, unspecified Coding Level of Care Code Est Pt Level 4 (29084) Diagnoses Acute pharyngitis, unspecified etiology J02.9 Pharyngitis/tonsillitis etiology: unspecified etiology Time Spent (min) 20
[2024-12-26 11:57] VITALS: BP 108/70; PULSE 77; TEMP 37.1; O2SAT 93
== END 2024-12-26 12:24 | disposition home or self-care (01) ==
PROVIDERS: PCP Physician Assistant Medical; Visit Provider Nurse Practitioner Family
DX: J02.9 Acute pharyngitis, unspecified (principal); Z13.9 Encounter for screening, unspecified

== ENCOUNTER → 2024-12-26 10:34 | Outpatient (BNVA) | payer OTHER, SELFPAY | PROVIDERS: PCP Physician Assistant Medical; Visit Provider Nurse Practitioner Family | DX: J02.9 Acute pharyngitis, unspecified (principal) | CPT/HCPCS: 87880 ==

== ENCOUNTER 2025-01-08 14:53 | Outpatient (AMB) | payer OTHER, SELFPAY ==
--- NOTE | 2025-01-08 15:00 | A.OFFPC_ITS ---
Vital Signs 01/08/25 15:03 Height 5 ft 2.25 in Weight 129 lb BMI 23.4 BP 111/69 Respiration 16 Pulse 70 Pulse Source Pulse Oximeter Temp 98.2 F Temp Source Temporal Artery Scan Pulse Oximetry (%) 99 Oxygen Delivery Method Room Air Intake Visit Reasons: ?sinus infection Primary Clinician Required: No Accompanied by: Self / Same As Patient Allergies amoxicillin Allergy (Mild, Verified 01/08/25 15:46) Rash walnuts Allergy (Unknown, Uncoded 01/08/25 15:46) unknown Medication List - Last Reconciled 01/08/25 by Anabel Maki PA-C docusate sodium (Colace) 100 mg PO DAILY doxycycline hyclate 100 mg PO BID 10 days epinephrine IM fluticasone propionate 50 mcg/actuation (Flonase Allergy Relief) 2 sprays intranasal BID hydroxyzine HCl 50 mg PO Q8H PRN levocetirizine (Xyzal) 5 mg PO QPM PRN prednisone 40 mg (2 x 20 mg) PO DAILY 5 days psyllium husk (Daily Fiber) 0.52 grams PO DAILY Tobacco use date assessed: 01/08/25 Dental Screening Dental Screen Date: 01/08/25 Did you have a dental visit in the last 12 months?: Yes Did you have a dental problem in the last 6 months where you did not have access to dental care?: No Was dental information given to patient?: Patient has dentist HPI ?sinus infection HPI Details The patient is a 19-year-old female presenting with sinus congestion and headaches. She has experienced these symptoms for approximately two weeks and describes a history of sinus infections similar to the current presentation. In the past, she was treated effectively with doxycycline. The patient went to urgent care in [place] on December 26 for sore throat and sinus issues and was prescribed prednisone and a Z-Barron, though she did not take the Z-Barron due to ineffectiveness in the past. Her symptoms include nasal congestion, headache, and pressure sensation radiating to her teeth, consistent with her previous episodes of sinusitis. She is allergic to Amoxicillin, which guides her treatment choices. She reports experiencing nasal congestion and associated symptoms that suggest acute sinusitis. Social History - Reports being a student in [employer]. - No specific information available on o ther social determinants of health. [facility] Medical History (Updated 01/08/25 @ 15:53 by Anabel Maki PA-C) Sinusitis Acute pharyngitis Thyroid nodule Establishing care with new doctor, encounter for Constipation in female Anxiety Asthma Surgical History H/O right wrist surgery [place] teeth removed Family History Mother Diabetes Maternal Grandmother Diabetes Social History Housing: House Alcohol intake: current Alcohol intake frequency: does not drink Patient Tobacco Use Status: Never used Tobacco service: No Current occupational status: employed Cognitive needs: No Hearing needs: No Vision needs: No Questionnaire PHQ-9 Over the last 2 weeks, how often have you been bothered by any of the following problems? 1. Little interest or pleasure in doing things: not at all 2. Feeling down, depressed, or hopeless: several days 3. Trouble falling or staying asleep, or sleeping too much: more than half the days 4. Feeling tired or having little energy: several days 5. Poor appetite or overeating: not at all 6. Feeling bad about yourself - or that you are a failure or have let yourself or your family down: several days 7. Trouble concentrating on things, such as reading the newspaper or watching television: several days 8. Moving or speaking so slowly that other people could have noticed. Or the opposite - being so fidgety or restless that you have been moving around a lot more than usual: several days 9. Thoughts that you would be better off or of hurting yourself in some way: not at all Total score: 7 Depression Screening Interpretation: Positive Depression Screening Follow-up: Existing condition Depression Screening Done: Yes 96487 - PHQ-9 Billing: Yes Source: Developed by Drs. Silverio Melissa, Yolette Boone, Gurpreet Abraham and colleagues, with an educational delmy from [employer]. Thrive Questionnaire Date Thrive assessed: 10/25/24 I am a: Patient What is your living situation today?: I have a steady place to live Within the past 12 months, did the food you bought not last and you didn't have the money to get more?: Never true Within the past 12 months, did you worry whether your food would run out before you got money to buy more?: Never true Do you have trouble paying for medicines?: No Do you have trouble getting transportation to medical appointments?: No Do you have trouble paying your heating and electricity bill?: No Do you have trouble taking care of your child, family member or friend?: No Do you have trouble with day-to-day activities such as bathing, preparing meals, shopping, managing finances, etc.?: No Are you currently unemployed and looking for a job?: No Are you interested in more education?: No THRIVE Score: 0 AUDIT C Alcohol Use Questionnaire (AUDIT-C) 1. How often do you have a drink containing alcohol?: Never 3. How often do you have six or more drinks on one occasion?: Never Total Score: 0 Score Reviewed/Action Taken: No JEANNIE-7 AMB Questionnaire JEANNIE-7 Date JEANNIE - 7 assessed: 10/25/24 Feeling nervous, anxious, or on edge: 2 = More than half the days Not being able to stop or control worryin = More than half the days Worrying too much about different things: 2 = More than half the days Trouble relaxin = More than half the days Being so restless that it is hard to sit still: 2 = More than half the days Becoming easily annoyed or irritable: 2 = More than half the days Feeling afraid as if something awful might happen: 2 = More than half the days Total JEANNIE-7 score (0-4 normal; 5-9 mild; 10-14 moderate; 15-21 severe): 14 Source: Developed by Drs. Silverio Melissa, Yolette Boone, Gurpreet Abraham and colleagues, with an educational delmy from [employer]. JEANNIE-7 Assessment Billing JEANNIE-7 Assessment Tool: JEANNIE-7 Assessment 37799 Review of Systems Const Details: - ENT: Reports nasal congestion, sore throat, headache, sinus pressure, ear discomfort. Denies complaints of worsening sore throat. - Respiratory: Denies cough, other than clearing mucus. - Gastrointestinal: Denies diarrhea initially; advised potential effects later. Physical exam (Primary Care) Vital Signs: Last Vital Signs Temp 98.2 F 01/08/25 15:03 Pulse 70 01/08/25 15:03 Resp 16 01/08/25 15:03 BP 111/69 01/08/25 15:03 Pulse Ox 99 01/08/25 15:03 Oxygen Delivery Method Room Air 01/08/25 15:03 Care Plan Goal for BP management: <140/90 BMI result Body Mass Index 23.4 normal bmi Tobacco/Smoking Status: Tobacco use Status Tobacco use date assessed 01/08/25 01/08/25 15:07 Patient Tobacco Use Status Never used Tobacco 01/08/25 15:04 PHQ-9: PHQ-9 Score PHQ-9: Total score 7 01/08/25 15:28 Depression Screening Interpretation: Positive Depression Screening Follow-up: Existing condition Thrive Assessment: Date of Thrive Assessment Date Thrive assessed 10/25/24 01/08/25 15:07 Const Other: Appearance: Alert. Oriented X3. No acute distress. Head: Normal external exam. Normocephalic. Atraumatic. Eyes: Pupils are equal, round, and reactive to light. Extraocular movements intact. Conjunctiva and sclera normal. Eyelids normal. Ears: External auditory canal normal. Tympanic membranes show a little bit of fluid in the left ear, with a pocket of fluid noted. Left tympanic membrane slightly erythematous and bulging. Right tympanic membrane within normal limits. Bilateral mastoids within normal limits no erythema, soft tissue swelling or tenderness noted. Throat: Mildly erythematous. No exudate is noted. Uvula midline. Moist mucous membranes. Normal voice. No trismus drooling or stridor is noted. Neck: Normal inspection. Neck supple. Full range of motion. No adenopathy. Thyroid Normal. No meningeal signs. No neck mass noted. Cardiovascular: Normal heart rate and rhythm. Respiratory: No respiratory distress. Painless inspiration. Back: Full range of motion noted. Skin: Skin warm and dry. Normal skin color. Normal skin turgor. No rashes/lesions/lacerations noted. Extremities: Extremities exhibit normal range of motion. Neuro: Oriented X 3. No motor deficit. No sensory deficit. Reflexes normal. Coding Level of Care Code Est Pt Level 3 (36060) Diagnoses Sinusitis J32.9 Additional Codes JAENNIE-7 Assessment Billing - JEANNIE-7 Assessment Tool: JEANNIE-7 Assessment 48166 ([id number]) PHQ-9 - 15372 - PHQ-9 Billing: Yes ([id number]) Assessment & Plan Assessment & Plan (1) Sinusitis: Code(s): J32.9 - Chronic sinusitis, unspecified Category: Medical Plan: Prescribed doxycycline 100 mg twice daily for 10 days and prednisone 40 mg daily for 5 days to treat infection and inflammation. Provided guidance on the use of Flonase for symptomatic relief and discussed upcoming symptom improvement expectations. Plan Plan Patient was informed and verbally consented to the use of an ambient scribe for clinic note documentation during this visit. 1. Acute Sinusitis Prescribed doxycycline 100 mg twice daily for 10 days and prednisone 40 mg daily for 5 days to treat infection and inflammation. Provided guidance on the use of Flonase for symptomatic relief and discussed upcoming symptom improvement expectations. 2. Allergic Rhinitis Continued use of current allergy medications Nany and Xyzal, with an option to use Flonase as needed for enhanced symptom control of nasal congestion. 3. Middle Ear Effusion The management plan includes addressing sinusitis-induced congestion with prescribed medications, aimed at alleviating middle ear fluid and associated symptoms. 4. Allergy To Amoxicillin Ensured alternative antibiotic choice with doxycycline for sinusitis management due to Amoxicillin allergy. I discussed with the patient the likely diagnosis of acute sinusitis with associated symptoms of middle ear effusion and allergic rhinitis. We agreed on starting doxycycline based on past effectiveness, and prednisone for inflammation control, considering potential improvements within a few days. I emphasized the importance of completing at least 7 days of doxycycline therapy and explained the potential side effects, such as gastrointestinal discomfort, advising the intake of probiotics or yogurt to mitigate these effects. Additionally, I counseled her on the necessity of effective sunscreen use due to doxycycline increasing sun sensitivity. Lastly, contraceptive interaction with antibiotics was discussed to prevent unintended during treatment, and follow-up was planned based on symptom response. Medications: New fluticasone propionate 50 mcg/actuation (Flonase Allergy Relief) administer into each nostril 2 sprays intranasal BID 16 grams 1RF doxycycline hyclate 100 mg PO BID 10 days 20 tabs 0RF Changed From prednisone 20 mg PO DAILY 5 days 5 tabs 0RF J02.9 - Acute pharyngitis, unspecified To prednisone 40 mg (2 x 20 mg) PO DAILY 5 days 10 tabs 0RF J02.9 - Acute pharyngitis, unspecified Refilled prednisone 20 mg PO DAILY 5 days 5 tabs 0RF J02.9 - Acute pharyngitis, unspecified Patient Instructions: - Take doxycycline 100 mg twice daily for 10 days. - Take prednisone 40 mg daily for 5 days. - Use Flonase nasal spray as directed. - Continue Nany and Xyzal for allergy management. - Use probiotics or eat yogurt to prevent stomach upset. - Apply sunscreen liberally to avoid sunburn while on doxycycline. - Be aware of possible interactions between antibiotics and control. - If symptoms worsen, seek medical attention. - Schedule follow-up if no improvement after completion of medications.
[2025-01-08 15:03] VITALS: BP 111/69; PULSE 70; RESP 16; TEMP 36.8; O2SAT 99; BMI 23.4
--- OUTSIDE RECORDS SUMMARY | 2025-01-08 16:39 | XMS_ITS | Data Portability ---
Author Organization [place] [facility] Diane España [facility] Address [address] [place] [address] Care Team Providers Care Surveying Crew Rodman Name Role Phone ELICIA PUGH Referring Provider ELICIA PUGH Primary Care Provider [phone] Assessment Encounter Date Assessment Date Assessment LastModified [...] in about 3 weeks for repeat assessment. [email or web address] Not available 01/06/2024 14:15:10 01/28/2024 01/28/2024 The [...] volar wrist incision, numbness in forearm and [id number] Request, please contact patient directly to schedule. 2023 024 LUANA Leija MD, [address] [facility], [place], [address], 16:17:48 Procedures None recorded. Surgeries None recorded. Imaging XR, wrist, 3 or more view 2023 024 [email or web address] [facility], [address], [place] [address], [place], [address], 10:22:45 Medication Orders None recorded. Patient TargetsNo targets recorded. Patient Instructions Encounter Date Encounter Id Patient Instructions Last Modified By Organization Details Last Modified Time 01/06/2024 [id number] X-rays of the ri ght wrist were obtained in the [place] office on 01/06/2020 force demonstrates no acute osseous abnormalities. [email or web address] Not available 01/06/2024 14:15:24 01/28/2024 [id number] 3 views of the r ight wrist [...] bones. [email or web address] Not available 01/28/2024 12:06:43 03/17/2024 [id number] A nerve conducti on study was performed [...] volar wrist incision, numbness in forearm and [id number] Request, please contact patient directly to schedule. Referring Physician: Flor Santos, Orthopedic Surgery, Encounter Date: 01/28/2024 Problems Name Problem SNOMED Code Status Onset Date Resolution Date Notes Provider Name and Address Organization Details Recorded Time Pain of left wrist 337313912553216 Active 2023 Flor alas MD [address], [facility] [place], [address], [place] [facility] 12:09:56 Numbness of hand 028498636 Active 2023 Flor alas MD [address], [facility] [place], [address], [facility] 4 12:10:11 Problem Notes None recorded. Medical Equipment None Reported. Allergies Allergen ID Allergen Name Allergen Category Reaction Reaction Severity Criticality Documentation Date Start Date Code Code System Note Provider Name and Address Organization Details Recorded Time 62612 walnut allergeni c extract food Not available Not available Not available 01/28/2024 13484 0 RxNorm Geetha Narus null, [facility] 4 14:23:09 31644 amoxicill in medicatio n Not available Not available Not available 01/28/2024 723 RxNorm Geetha Narus null, [facility], P 4 14:23:14 Medications Name [...] 03/17/2024 160.02 cm 23.9 kg/m2 71 % 94848.97 g Juve Ramos [facility] 03/17/2024 10:05:15 Social History None recorded. Functional Status None recorded. Mental Status None recorded. Family History Nothing Reported. Medical History No medical history recorded. Gynecological HistoryNo gynecological history recorded. Obstetrics History GPAL:G 0 P 0 0 0 0 Past Encounters Encounter ID Performer Location Encounter Start Date Encounter Closed Date Diagnosis/Indication Diagnosis SNOMED-CT Code Diagnosis ICD10 Code Diagnosis Note [id number] TJ CIFUENTES PA-C [facility] [address] [facility] [place] [address] 01/06/2024 13:33:07 01/06/2024 14:13:53 Pain of right wrist 3704456263 82860 M25.531 Additional diagnosis detail: Pain in right wrist [id number] Flor Santos MD [facility] hospital [address] [facility] [address] [place] [address] 01/28/2024 11:11:06 01/28/2024 11:47:30 Pain of left wrist 2971418075 85504 M25.532 Additional diagnosis detail: Wrist pain, left Numbness of hand 6997992 04 R20.0 Additional diagnosis detail: Hand numbness [id number] Flor Santos MD Critical access hospital [address] [address] 03/17/2024 09:58:30 03/17/2024 10:23:46 Numbness of hand 979827199 R20.0 Additional diagnosis detail: Hand numbness Health Concerns Section Related Observation LastModified by Organization Detai ls LastModified Time None Recorded Concern Status LastModified by Organization Details LastModified Time None Recorded Advance Directives Directive None Recorded Payers Encounter Date Sequence Insurance Name Policy Number Policy Mcneill Covered Member ID Mcneill Member ID Guarantor Name 01/06/2024 1 [facility] [id number] Colleen Turk [id number] Colleen Turk 01/28/[address] [place] [address] [id number] Colleen Turk [id number] Colleen Turk 03/17/[address] [place] [address] [id number] Colleen Turk [id number] Colleen Turk Notes Date Note Type Note [...] TJ CIFUENTES PA-C [address], [place], [address], [place] [facility] 01/06/2024 14:15:39 01/28/2024 text/html This is a 18-year-old [id number] female who is presenting for second opinion regarding her right wrist. She has a history significant for a right wrist fracture she sustained while skiing which was fixed with plate and screws when she was 9 [address] Olivas at [facility]. 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 She is working in a grocery store in the meantime.She has a history of asthma. She does not use tobacco or nicotine products, illicit drug use, or alcohol use. Geetha davis, [place] [facility] 01/28/2024 14:01:44 03/17/2024 text/html She returns [...] Flor Santos MD [address], [place], [address], [place] [facility] 03/17/2024 12:30:06 OBGyn Episode No OBEpisode recorded.
== END 2025-01-08 15:58 | disposition home or self-care (01) ==
LOC: HO.HMCSH 14:53
PROVIDERS: PCP Physician Assistant Medical; Visit Provider Physician Assistant Medical
DX: J32.9 Chronic sinusitis, unspecified (principal)

== ENCOUNTER → 2025-01-08 14:53 | Outpatient (BNVA) | payer OTHER, SELFPAY | PROVIDERS: PCP Physician Assistant Medical; Visit Provider Physician Assistant Medical | DX: J32.9 Chronic sinusitis, unspecified (principal); Z88.0 Allergy status to penicillin; Z13.31 Encounter for screening for depression | CPT/HCPCS: 96127 ==